=== PATIENT | male | born 1985 | race African-American/Black ===

== ENCOUNTER 2017-04-14 11:43 | Emergency (ER) | payer SELFPAY ==
[~2017-04-14 11:43] MED LIST: CEPH500C3 PO; HYDR-3533 PO; IBUP-232 PO; LORTA5 PO; NAPR500 PO
[2017-04-14 11:48] VITALS: BP 132/73; PULSE 86; RESP 15; TEMP 98.2; O2SAT 98
[2017-04-14 12:39] VITALS: BP 117/72; PULSE 68; RESP 14; TEMP 98.1; O2SAT 100
[2017-04-14] MEDS ORDERED: CEPHALEXIN MONOHYDRATE 500 MG CAP PO ONE (12:45)
--- NOTE | 2017-04-14 12:46 | PD ---
HPI Chief Complaint: Laceration/Skin Injury Time Seen by Provider: 12:45 Travel History International Travel<30 days: No Contact w/Intl Traveler<30days: No Traveled to known affect area: No History of Present Illness HPI 31-year-old male presents to the emergency department for evaluation of a laceration to his left second finger on the volar surface that occurred last night at 8 PM. This is a 17 hour old laceration. The patient states he was at work when he cut his finger with a steak knife. He states that his tetanus immunization is up-to-date within 5 years. He denies any medical problems or taking medications. He has no loss of range of motion of the affected digit. No fevers or chills. No chest pain or trismus breath. No abdominal pain. No nausea, vomiting, diarrhea. Patient denies any other injury. He has no other complaints at this time. PFSH Past Medical History Diminished Hearing: No Immunizations Current: Yes Social History Alcohol Use: Yes (occ) Tobacco Use: Yes (CIGAR X1 A DAY) Substance Use: No Allergies-Medications (Allergen,Severity, Reaction): Coded Allergies: No Known Allergies (Verified , 04/14/17) Reported Meds & Prescriptions Reported Meds & Active Scripts Active Lortab 5 mg/325 mg (Hydrocodone/Acetaminophen 5 mg/325 mg) 1 Tab 1 Tab PO Q6H PRN Naprosyn (Naproxen) 500 Mg Tab 500 Mg PO BID Motrin (Ibuprofen) 600 Mg Tab 1 Tab PO TID NEEDED FOR PAIN Keflex (Cephalexin Monohydrate) 500 Mg Cap 500 Mg PO BID [place] 5/325 (Hydrocodone/Acetaminophen 5/325) 5 mg/325 mg Tab 1 Tab PO Q6H PRN Review of Systems Except as stated in HPI: all other systems reviewed are Neg Physical Exam Narrative GENERAL: Well-nourished, well-developed male patient, ambulatory. Afebrile. SKIN: Focused skin assessment warm/dry. Patient has a 1.5 cm laceration to the distal aspect of the left second finger the volar surface. This is a superficial laceration. No active bleeding. HEAD: Normocephalic. Atraumatic. EYES: No scleral icterus. No injection or drainage. NECK: Supple, trachea midline. No JVD or lymphadenopathy. CARDIOVASCULAR: Regular rate and rhythm without murmurs, gallops, or rubs. RESPIRATORY: Breath sounds equal bilaterally. No accessory muscle use. Lungs sounds are clear to auscultation GASTROINTESTINAL: Abdomen soft, non-tender, nondistended. MUSCULOSKELETAL: No cyanosis, or edema. She has full range of motion of the affected digit. BACK: Nontender without obvious deformity. No CVA tenderness. Data Data Last Documented VS Vital Signs Date Time Temp Pulse Resp B/P Pulse Ox O2 Delivery O2 Flow Rate FiO2 04/14/17 12:39 98.1 68 14 117/72 100 Room Air Orders Cephalexin (Keflex) (04/14/17 12:45) [facility] Medical Decision Making Medical Screen Exam Complete: Yes Emergency Medical Condition: Yes Medical Record Reviewed: Yes Differential Diagnosis Finger laceration versus abrasion versus contusion Narrative Course 31-year-old male presents to the emergency department for evaluation of a finger laceration that occurred approximately 17 hours ago. It is a superficial laceration. Due to the age of the wound and how superficial the wound it is, I do not believe that suturing is warranted at this time. I believe the risk of infection is too high. The patient verbalizes agreement. Wound care is completed in the emergency department. Patient will be discharged with a prescription for Keflex. He is given his first dose here in the emergency department. Patient states his tetanus immunization is up-to- date. He is given proper wound care instructions for home. He is to return for any acute worsening of symptoms. The patient was discharged in stable condition with instructions, including return instructions and follow up instructions. Diagnosis Primary Impression: Finger laceration Qualified Code: S61.211A - Laceration of left index finger without foreign body without damage to nail, initial encounter Referrals: Primary Care Physician 2 days Patient Instructions: General Instructions Departure Forms: Tests/Procedures, Work Release Enter return to work date: Apr 17, 2017 Additional Instructions: Clean twice daily with soap and water and apply [id number] antibiotic ointment. Keep clean and dry. Take antibiotic as directed until gone. Follow-up with your primary care physician. Return to the emergency department for any acute worsening of symptoms. Med/Other Pt SpecificInfo: Prescription(s) given Scripts Cephalexin (Keflex)500 Mg [id number] Mg PO Q8H 7 Days Ref 0 Prov:Seema Velasquez 04/14/17 Disposition: 01 DISCHARGE HOME Condition: Stable Seema Velasquez Apr 14, 2017 12:46
[2017-04-14] MEDS ORDERED: CEPH-460 PO (12:51)
== END 2017-04-14 13:21 | disposition home or self-care (01) ==
LOC: NEPE 11:43
DX: S61.211A Laceration without foreign body of left index finger without damage to nail, initial encounter (principal); Z72.0 Tobacco use; W26.0XXA Contact with knife, initial encounter; Y99.0 Civilian activity done for income or pay
CPT/HCPCS: 99283

== ENCOUNTER 2017-09-17 02:28 | Emergency (ER) | payer SELFPAY ==
[~2017-09-17] VITALS: Ht 175.3 cm; Wt 82.0 kg
[2017-09-17 02:28] VITALS: BP 137/66; PULSE 77; RESP 16; TEMP 99.1; O2SAT 98
[~2017-09-17 02:28] MED LIST changes: +CEPH-460 PO; -CEPH500C3 PO; -HYDR-3533 PO; -IBUP-232 PO; -LORTA5 PO; -NAPR500 PO
[2017-09-17 03:12] VITALS: BP 140/88; PULSE 70; RESP 20; O2SAT 99
--- NOTE | 2017-09-17 04:46 | PD ---
HPI Chief Complaint: Chest Pain Time Seen by Provider: 04:15 Travel History International Travel<30 days: No Contact w/Intl Traveler<30days: No Traveled to known affect area: No History of Present Illness HPI 31-year-old male complaining of left-sided chest pain. Patient states the pain started 3 days ago. Patient states the pain is sharp pain localized to left chest. Patient denies any pain radiation. Patient denies any palpitation nausea diaphoresis. Patient states that he has productive cough for the past several days. Patient denies any fever chills. Patient denies any shortness of breath. Patient denies history of CAD. Patient denies history hypertension , diabetes, hypolipidemia. Patient is a smoker. On a scale of 1-10 the pain is an 8. PFSH Past Medical History Medical History: Denies Significant Hx Diminished Hearing: No Musculoskeletal: Yes (Fx LLE 2014) Immunizations Current: Yes Tetanus Vaccination: < 5 Years Past Surgical History Surgical History: No Previous Surgery Social History Alcohol Use: Yes (2 beers per day) Tobacco Use: Yes (1/2 pack per day) Substance Use: Yes (pot) Allergies-Medications (Allergen,Severity, Reaction): Coded Allergies: No Known Allergies (Verified Adverse Reaction, Unknown, 09/17/17) Reported Meds & Prescriptions Reported Meds & Active Scripts Active Zithromax Z-Chidi (Azithromycin) 250 Mg Dspk 250 Mg PO DIRECTED 500 MG (2 tabs) day 1, then 1 tab days 2-5. Mobic (Meloxicam) 15 Mg Tab 15 Mg PO DAILY Review of Systems General / Constitutional: No: Fever Eyes: No: Visual changes HENT: No: Headaches Cardiovascular: Positive: Chest Pain or Discomfort Respiratory: Positive: Cough, No: Shortness of Breath Gastrointestinal: No: Abdominal Pain Genitourinary: No: Dysuria Musculoskeletal: No: Pain Skin: No Rash Neurologic: No: Weakness Psychiatric: No: Depression Endocrine: No: Polydipsia Hematologic/Lymphatic: No: Easy Bruising Physical Exam Narrative GENERAL: Well-nourished, well-developed patient. SKIN: Focused skin assessment warm/dry. HEAD: Normocephalic. EYES: No scleral icterus. No injection or drainage. NECK: Supple, trachea midline. No JVD or lymphadenopathy. CARDIOVASCULAR: Regular rate and rhythm without murmurs, gallops, or rubs. RESPIRATORY: Breath sounds equal bilaterally. No accessory muscle use. GASTROINTESTINAL: Abdomen soft, non-tender, nondistended. MUSCULOSKELETAL: No cyanosis, or edema. BACK: Nontender without obvious deformity. No CVA tenderness. Neurologic exam normal. Data Data Last Documented VS Vital Signs Date Time Temp Pulse Resp B/P (MAP) Pulse Ox O2 Delivery O2 Flow Rate FiO2 09/17/17 03:14 20 99 Room Air 09/17/17 03:12 70 140/88 (105) 09/17/17 02:28 99.1 Orders Orders Electrocardiogram (09/17/17 04:31) Complete Blood Count With Diff (09/17/17 04:31) Comprehensive Metabolic Panel (09/17/17 04:31) Creatine Kinase (Cpk) (09/17/17 04:31) Troponin I (09/17/17 04:31) Chest, Single Ap (09/17/17 04:31) Iv Access Insert/Monitor (09/17/17 04:31) Ecg Monitoring (09/17/17 04:31) Oximetry (09/17/17 04:31) Labs Laboratory Tests Test 09/17/17 04:25 White Blood Count 4.9 TH/MM3 Red Blood Count 4.42 MIL/MM3 Hemoglobin 12.5 GM/DL Hematocrit 37.6 % Mean Corpuscular Volume 85.2 FL Mean Corpuscular Hemoglobin 28.3 PG Mean Corpuscular Hemoglobin Concent 33.2 % Red Cell Distribution Width 13.4 % Platelet Count 223 TH/MM3 Mean Platelet Volume 8.3 FL Neutrophils (%) (Auto) 78.1 % Lymphocytes (%) (Auto) 16.2 % Monocytes (%) (Auto) 3.8 % Eosinophils (%) (Auto) 1.6 % Basophils (%) (Auto) 0.3 % Neutrophils # (Auto) 3.9 TH/MM3 Lymphocytes # (Auto) 0.8 TH/MM3 Monocytes # (Auto) 0.2 TH/MM3 Eosinophils # (Auto) 0.1 TH/MM3 Basophils # (Auto) 0.0 TH/MM3 CBC Comment DIFF FINAL Differential Comment Blood Urea Nitrogen 18 MG/DL Creatinine 1.05 MG/DL Random Glucose 99 MG/DL Total Protein 6.7 GM/DL Albumin 3.6 GM/DL Calcium Level 8.3 MG/DL Alkaline Phosphatase 77 U/L Aspartate Amino Transf (AST/SGOT) 20 U/L Alanine Aminotransferase (ALT/SGPT) 37 U/L Total Bilirubin 0.7 MG/DL Sodium Level 138 MEQ/L Potassium Level 3.9 MEQ/L Chloride Level 104 MEQ/L Carbon Dioxide Level 25.5 MEQ/L Anion Gap 9 MEQ/L Estimat Glomerular Filtration Rate 100 ML/MIN Total Creatine Kinase 204 U/L Troponin I LESS THAN 0.02 NG/ML MDM Medical Decision Making Medical Screen Exam Complete: Yes Emergency Medical Condition: Yes Interpretation(s) 5:31 AM. CBC within normal limit. CMP within normal limit. Cardiac enzymes are normal. Chest x-ray shows no acute consolidation. Differential Diagnosis Differential diagnosis including musculoskeletal, bronchitis, pneumonia, PE, pneumothorax, pleurisy, angina, CA. Narrative Course 31-year-old male with left-sided chest pain and a cough. Diagnosis Primary Impression: Bronchitis Additional Impression: Atypical chest pain Patient Instructions: General Instructions Additional Instructions: Take medications as directed. Follow-up with personal physician. Return if increasing chest pain shortness of breath. Med/Other Pt SpecificInfo: Prescription(s) given Scripts Azithromycin (Zithromax Z-Chidi) 250 Mg Dspk 250 MG PO DIRECTED for Infection, #1 DSPK 0 Refills 500 MG (2 tabs) day 1, then 1 tab days 2-5. Prov: Marcelo Jorgensen MD 09/17/17 Meloxicam (Mobic) 15 Mg Tab 15 MG PO DAILY for Pain, #20 TAB 0 Refills Prov: Marcelo Jorgensen MD 09/17/17 Disposition: 01 DISCHARGE HOME Condition: Stable Marcelo Jorgensen MD Sep 17, 2017 04:46
[2017-09-17 04:47] LABS: AUTOMATED NEUTROPHIL # 3.9 TH/MM3 (1.8-7.7); BASOPHIL % 0.3 % (0.0-2.0); EOSINOPHIL # 0.1 TH/MM3 (0-0.4); EOSINOPHIL % 1.6 % (0.0-4.0); HEMATOCRIT 37.6 % (39.0-51.0); HEMO FLAGS DIFF FINAL; LYMPH % 16.2 % (9.0-44.0); LYMPHOCYTE # 0.8 TH/MM3 (1.0-4.8); MEAN CELL VOLUME 85.2 FL (80.0-100.0); MEAN CORPUSCULAR HEMOGLOBIN 28.3 PG (27.0-34.0); MEAN CORPUSCULAR HGB CONC 33.2 % (32.0-36.0); MONO % 3.8 % (0.0-8.0); NEUT % 78.1 % (16.0-70.0); PLATELET COUNT 223 TH/MM3 (150-450); RED BLOOD COUNT 4.42 MIL/MM3 (4.50-5.90); RED CELL DISTRIBUTION WIDTH 13.4 % (11.6-17.2); WHITE BLOOD COUNT 4.9 TH/MM3 (4.0-11.0)
[2017-09-17 05:11] LABS: ALT (GPT) 37 U/L (12-78); ANION GAP 9 MEQ/L (5-15); AST (GOT) 20 U/L (15-37); BICARBONATE 25.5 MEQ/L (21.0-32.0); BLOOD UREA NITROGEN 18 MG/DL (7-18); CHLORIDE 104 MEQ/L (98-107); GLOMERULAR FILTRATION RATE 100 ML/MIN (>89); POTASSIUM 3.9 MEQ/L (3.5-5.1); SODIUM (NA) 138 MEQ/L (136-145)
[2017-09-17 05:14] LABS: ALKALINE PHOSPHATASE 77 U/L (45-117); CREATINE KINASE 204 U/L (39-308); TOTAL BILIRUBIN ADULT 0.7 MG/DL (0.2-1.0)
--- NOTE | 2017-09-17 05:31 | RADRPT ---
EXAM DATE/TIME: 09/17/2017 05:09 [place] COMPARISON: No previous studies available for comparison. INDICATIONS : Shortness of breath, also pain in medial chest. MEDICAL HISTORY : None. SURGICAL HISTORY : None. ENCOUNTER: Initial ACUITY: 1 day PAIN SCORE: 0/10 LOCATION: Bilateral chest FINDINGS: A single view of the chest demonstrates the lungs to be symmetrically aerated without evidence of mas s, infiltrate or effusion. The cardiomediastinal contours are unremarkable. Osseous structures are intact. CONCLUSION: No acute disease. Néstor Rebolledo MD on September 17, 2017 at 5:28 Board Certified Radiologist. This report was verified electronically.
[2017-09-17] MEDS ORDERED: MOBI15TA PO (05:40)
[2017-09-17] MEDS ORDERED: ZITHTAB PO (05:40)
--- NOTE | 2017-09-17 15:12 | EKG ---
Date Performed: 09/17/2017 Time Performed: 03:21:28 PTAGE: 31 years EKG: Sinus rhythm WITH SINUS ARRHYTHMIA EARLY REPOLARIZATION BORDERLINE ECG NO PREVIOUS TRACING DOCTOR: Kayla Carroll Interpretating Date/Time 09/17/2017 15:11:34
== END 2017-09-17 05:49 | disposition home or self-care (01) ==
LOC: NEPC 02:28 → UNDOADMOB 05:36 → NEDA 05:36 → NEPC 05:49
DX: J40 Bronchitis, not specified as acute or chronic (principal); F17.210 Nicotine dependence, cigarettes, uncomplicated
CPT/HCPCS: 71010; 80053; 82550; 84484; 85025; 93005; 99285